=== PATIENT | female | born 1990 | race Hispanic/Latino ===

== ENCOUNTER 2020-01-12 09:53 | Inpatient (IN) | payer BC ==
[~2020-01-12] VITALS: Ht 170.2 cm; Wt 85.7 kg
--- OUTSIDE RECORDS SUMMARY | ~2020-01-12 | XMS | Clinical Summary ---
Demographics + + + | Address | [address] | | | [place] [address] | + + + | Home Phone | | + + + | Preferred Language | Unknown | + + + | Marital Status | Single | + + + | Pentecostalism Affiliation | 1041 | + + + | Race | Unknown | + + + | Ethnic Group | Unknown | + + + Author + + + | Author | [facility] | | | and [place] | + + + | Organization | [facility] | | | and [place] | + + + | Address | Unknown | + + + | Phone | Unavailable | + + + Support + + +---------+ + | Name | Relationship | Address | Phone | + + +---------+ + | Libradoparish Stinson | ECON | Unknown | | + + +---------+ + Care Team Providers + +------+ + | Care Television And Radio Repairer Name | Role | Phone | + +------+ + PCP | Unavailable | + +------+ + Allergies No Known Allergies Medications Not on file Active Problems + + + | Problem | Noted Date | + + + | Epigastric pain | 01/18/2018 | + + + + + | Overview: Added automatically from request for surgery [id number] | + + + + + | Gastroesophageal reflux disease | 01/18/2018 | + + + + + | Overview: Added automatically from request for surgery [id number] | + + Family History + + +------+ + | Medical History | Relation | Name | Comments | + + +------+ + | Colon cancer | Neg Hx | | | + + +------+ + | Colon polyps | Neg Hx | | | + + +------+ + + +------+--------+ + | Relation | Name | Status | Comments | + +------+--------+ + | Father | | Alive | | + +------+--------+ + | Mother | | Alive | | + +------+--------+ + Social History + +-------+ +--------+------+ | Tobacco Use | Types | Packs/Day | Years | Date | | | | | Used | | + +-------+ +--------+------+ | Never Smoker | | | | | + +-------+ +--------+------+ + + + | Sex Assigned at | Date Recorded | | | | + + + | Not on file | | + + + Last Filed Vital Signs + + + + + | Vital Sign | Reading | Time Taken | Comments | + + + + + | Blood Pressure | 110/63 | 03/14/2018 12:10 PM | | | | | PDT | | + + + + + | Pulse | 65 | 03/14/2018 12:10 PM | | | | | PDT | | + + + + + | Temperature | 36.1 C (97 F) | 03/14/2018 12:10 PM | | | | | PDT | | + + + + + | Respiratory Rate | 16 | 03/14/2018 12:10 PM | | | | | PDT | | + + + + + | Oxygen Saturation | - | - | | + + + + + | Inhaled Oxygen | - | - | | | Concentration | | | | + + + + + | Weight | 66 kg (145 lb 8 oz) | 03/14/2018 12:10 PM | | | | | PDT | | + + + + + | Height | 167.6 cm (5' 6") | 03/14/2018 12:10 PM | | | | | PDT | | + + + + + | Body Mass Index | 23.48 | 03/14/2018 12:10 PM | | | | | PDT | | + + + + + Plan of Treatment + + +-------+ + | Health Maintenance | Due Date | Last | Comments | | | | Done | | + + +-------+ + | Hepatitis C | | | | | Screening | 2 | | | + + +-------+ + | Vaccine: | | | | | Dtap/Tdap/Td (1 - | 1 | | | | Tdap) | | | | + + +-------+ + | Cervical Cancer | | | | | Screening (Pap) | 3 | | | + + +-------+ + | Vaccine: Influenza | | | | | (#1) | 0 | | | + + +-------+ + Results Not on filefrom Last 3 Months
--- OUTSIDE RECORDS SUMMARY | ~2020-01-12 | XMS | Encounter Summary ---
Demographics + + + | Address | [address] | | | [place] [address] | + + + | Home Phone | | + + + | Preferred Language | Unknown | + + + | Marital Status | Single | + + + | Spiritism Affiliation | 1041 | + + + | Race | Unknown | + + + | Ethnic Group | Unknown | + + + Author + + + | Author | [facility] | | | and [place] | + + + | Organization | [facility] | | [...] Team Providers + +------+ + | Care Tire Builder Heavy Service Name | Role | Phone | + +------+ + PCP | Unavailable | + +------+ + Encounter Details +--------+ + + + + | Date | Type | Department | Care Team | Description | +--------+ + + + + | 03/14/ | [facility] | [facility] | Mario Loomis | Epigastric pain; | | 2018 | Encounter | [facility] | MD Wu [address] | Gastroesophageal | | | | INTRA [address] | [place] | reflux disease, | | | | [place], [place] | [address] | esophagitis presence | | | | [address] | | not specified | | | | [phone] | | | +--------+ + + + + Social History + +-------+ +--------+------+ | Tobacco Use | Types | Packs/Day | Years | Date | | | | | Used | | + +-------+ +--------+------+ | Never Assessed | | | | | + +-------+ +--------+------+ + + + | Sex Assigned at | Date Recorded | | | | + + + | Not on file | | + + + documented as of this encounter Last Filed Vital Signs + + + [...] | | + + + + + documented in this encounter Medications at Time of Discharge + + + +---------+ + + | Medication | Sig | Dispensed | Refills | Start | End Date | | | | | | Date | | + + + +---------+ + + | sucralfate | Take 1 tablet by | 40 | 0 | 12/01/19 | | | (CARAFATE) 1 g | mouth 4 (four) times | tablet | | 18 | 9 | | tablet | daily. | | | | | + + + +---------+ + + documented as of this encounter H&P Mario Aguilar MD - 03/13/2018 11:33 PM PDT H&P by Mario Loomsi IV, MD at 03/13/18 5655 Author: Mario Loomis IV, MD Service: Gastroenterology Author Type: Physician Filed: 03/14/18 1127 Date of Service: 03/13/18 0544 Status: Signed Diesel Service Journeyman: Mario Loomis IV, MD (Physician) [facility] Service: Gastroenterology Pre-Operative History & Physical ? INDICATION: ICD-10-CM 1. Gastroesophageal reflux disease, esophagitis presence not specified K21.9 2. Epigastric pain R10.13 3. Constipation, unspecified constipation type K59.00 PROCEDURE: EGD ? History Obtained From: Patient visit with Taryn Lemus PA-C HISTORY OF PRESENT ILLNESS The patient is a 28 y.o., female, : 1990, who presents with GERD, Epigastric pain a nd Constipation ROS/Clinical Review Constitutional: Positive for activity change, appetite change, fatigue and unexpected weigh t change. Negative for chills, diaphoresis and fever. HENT: Positive for mouth sores and trouble swallowing (c/o x2 months while eating couple ti mes a week.). Negative for ear pain, nosebleeds, sore throat and voice change. Eyes: Positive for pain and redness. Negative for visual disturbance. Respiratory: Negative for cough, choking, chest tightness, shortness of breath and wheezing . Cardiovascular: Negative for chest pain, palpitations and leg swelling. Gastrointestinal: Positive for constipation (c/o x5 months BM's 1-2 times a day. Has been e ating more foods with fiber which help with digestion.) and nausea (c/o x1 month while eatin g.). Negative for abdominal distention, abdominal pain, anal bleeding, blood in stool, diarr hea, rectal pain and vomiting. C/o of heartburn while eating spicy foods, constant discomfort daily. Endocrine: Positive for cold intolerance. Negative for heat intolerance and polydipsia. Genitourinary: Negative for difficulty urinating, dysuria, frequency, hematuria, urgency an d vaginal bleeding. Musculoskeletal: Positive for back pain. Negative for arthralgias, gait problem, joint swel ling, myalgias, neck pain and neck stiffness. Skin: Positive for color change. Negative for rash and wound. Allergic/Immunologic: Negative for environmental allergies, food allergies and immunocompro mised state. Neurological: Negative for dizziness, tremors, seizures, syncope, weakness, light-headednes s and headaches. Hematological: Negative for adenopathy. Does not bruise/bleed easily. Psychiatric/Behavioral: Negative for agitation, behavioral problems, confusion, dysphoric m ood, hallucinations and suicidal ideas. The patient is not nervous/anxious. Allergies: No Known Allergies Medications: Current Outpatient Prescriptions on File Prior to Visit Medication Sig Dispense Refill pantoprazole (PROTONIX) 20 MG tablet Take 2 tablets by mouth every morning before break fast. 60 tablet 11 sucralfate (CARAFATE) 1 g tablet Take 1 tablet by mouth 4 (four) times daily. (Patient taking differently: Take 1 g by mouth as needed.) 40 tablet 0 No current facility-administered medications on file prior to visit. Past Medical History Diagnosis Date Gastroesophageal reflux disease 01/18/2018 No past surgical history on file. Family History Problem Relation Age of Onset Colon polyps Neg Hx Colon cancer Neg Hx Social History: History Smoking Status Never Smoker Smokeless Tobacco Never Used History Alcohol Use No History Drug Use No PHYSICAL EXAM Vital Signs: BP 114/73 (BP Location: Right upper arm, Patient Position: Sitting) | Pulse 71 | Temp 96.6 F (35.9 C) (Temporal) | Resp 16 | Ht 1.676 m (5' 6") | Wt 66 kg (145 lb 8.1 oz) | LMP 03/07/2018 (Approximate) | SpO2 100% | BMI 23.48 kg/m ? Pertinent Physical Exam: HENT: wnl Neck: wnl Lungs: wnl Heart: wnl Abd: wnl ? PROBLEM LIST Patient Active Problem List Diagnosis Epigastric pain Gastroesophageal reflux disease ASSESSMENT & PLAN 1. Patient is a 28 y.o., female, with above specified procedure planned for the indications noted. 2. Medical conditions are currently stable and patient is felt appropriate for proceeding w ith procedure. Treatment Plan: _x___EGD ____COLONOSCOPY ____ERCP ____OTHER Plan for Anesthesia: _x___IV Sedation ____Per Anesthesia Service ____None Procedure Consent: The procedure, indications, limitations, alternatives available and pote ntial complications to include but not limited to bleeding, perforation, infection, and adve rse medication reaction was explained. Opportunity for questions provided and informed conse nt obtained. Moderate Sedation Presedation Assessment completed. ASA Classification: ASA 1: Normal healthy patient Mallampati Classification: I: Full visibility of tonsils, uvula and soft palate On reexamination of the patient and patient's chart today, there are no changes. Discharge Plans: Discharge when appropriate discharge criteria met. Also per any procedure report recommendations. ? Updated today Ariana Loomis IV, M.D. 03/14/2018 Primary Care Physician: Per PT None *CORE MEASURES REMINDER: If the patient has a known or suspected infection prior to surgery , please add diagnosis to the problem list (consider: Infection 136.9). ? documented in th is encounter Procedure Notes Mario Loomis MD - 03/14/2018 11:26 AM PDT Procedures signed by at 03/14/18 1200 Author: Mario Loomis IV, MD Service: Gastroenterology Author Type: Physician Filed: 03/14/18 1200 Date of Service: 03/14/18 1126 Status: Signed Diesel Service Journeyman: Mario Loomis IV, MD (Physician) Procedure Orders: 1. EGD [[id number]] ordered by Mario Loomis IV, MD at 03/14/18 1018 documented in th is encounter Miscellaneous Notes Plan of Care - Mario Loomis MD - 03/14/2018 12:01 PM PDTFormatting of this note margo ht be different from the original. Plan of Care by Mario Loomis IV, MD at 03/14/18 1201 Author: Mario Loomis IV, MD Service: Gastroenterology Author Type: Physician Filed: 03/14/18 1201 Date of Service: 03/14/18 1201 Status: Signed Diesel Service Journeyman: Mario Loomis IV, MD (Physician) Procedure report listed under Procedures in Chart Review iscellaneous - Mario Loomis MD - 03/14/2018 11:26 AM PDT D-C Instructions Provation signed by at 03/14/18 1200 Author: Mario Loomis IV, MD Service: Gastroenterology Author Type: Physician Filed: 03/14/18 1200 Date of Service: 03/14/18 1126 Status: Signed Diesel Service Journeyman: Mario Loomis IV, MD (Physician) Patient Instructions After Upper GI endoscopy Patient: Smitha Correa Procedure Date: Wednesday, March 14, 2018 Attending MD: Mario Loomis IV; You had a Upper GI endoscopy today. Your doctor made the following findings: - Normal esophagus. - Normal stomach. Biopsied. - Normal duodenal bulb, first portion of the duodenum and second portion of the duodenum. Your doctor recommends: You have a contact number available for emergencies. The signs and symptoms of potential delayed complications were discussed with you. You may return to normal activities tomorrow. Written discharge instructions were provided to you. Resume your previous diet. Continue your present medications. We are waiting for your pathology results. Return to your GI clinic as previously scheduled. CALL YOUR PHYSICIAN IF YOU EXPERIENCE: < Any unusual abdominal pain. < Any shoulder pain. < Temperature above 100 degrees Fahrenheit < Rectal bleeding in excess of 2 Tablespoons DIET: If you have undergone diagnostic colonosocpy, you may resume your regular diet immediately after the procedure unless otherwise instructed by your doctor. CAUTIONS: The medications used to make the examination more comfortable for you will be acting in your body for up to 24 hours. Therefore: < DO NOT drive a car or operate machinery or power tools. < DO NOT drink alcohol or take tranquillizers or sleeping pills. < DO NOT make major personal decisions. This includes signing legal documents and/or contracts. MEDICATIONS: Most medications can be safely resumed once you can eat. The exceptions would be tranquillizers and sleeping pills. Mario Loomis IV, 03/14/2018 12:00:19 PM This report has been signed electronically. documented in th is encounter Plan of Treatment Not on filedocumented as of this encounter Procedures + +--------+ + + + | Procedure Name | Priori | Date/Time | Associated Diagnosis | Comments | | | ty | | | | + +--------+ + + + | TISSUE REQUEST FOR | Routin | 03/14/2018 | | Results for this | | PATHOLOGY (NON-ORD) | e | 1:00 PM | | procedure are in the | | | | PDT | | results section. | + +--------+ + + + | ENDOSCOPY | Routin | 03/14/2018 | | Results for this | | | e | 11:26 AM | | procedure are in the | | | | PDT | | results section. | + +--------+ + + + | HCG, URINE, QUAL | Routin | 03/14/2018 | | Results for this | | | e | 10:19 AM | | procedure are in the | | | | PDT | | results section. | + +--------+ + + + documented in this encounter Results Tissue Request For Pathology (03/14/2018 1:00 PM PDT) + + | Specimen | + + | Soft tissue sample | | (specimen) | + + + + + | Narrative | Performed At | + + + | SPECIMEN(S): A GASTRIC BX SPECIMEN SOURCE: A. GASTRIC BX CLINICAL | EXTERNAL LAB | | HISTORY: Epigastric pain MICROSCOPIC DESCRIPTION: Histologic | | | sections of all submitted blocks are examined by light microscopy. | | | These findings, together with the gross examination, support the | | | pathologic diagnosis. FINAL PATHOLOGIC DIAGNOSIS: Gastric biopsy: | | | - Chronic gastritis with mild activity and foci of reactive | | | changes. - POSITIVE for abundant Helicobacter-type organisms. | | | CLR:emb:C2NR GROSS DESCRIPTION: The specimen is received in | | | formalin labeled Katina MelanieSmitha Landeros and designated "gastric | | | bx" and consists of 4, 0.3 to 0.4 cm lucas-pink fragments. Entirely | | | submitted in A1. am:AMB:milind PERFORMING LABORATORY: The technical | | | component was performed by [facility] in [place], [address] [place] [address], | | | [facility] [address] (Sustain Engineer: Scarlet Caal MD; CLIA# | | | [id number]). Professional interpretation was performed by [facility] | | | [facility], [facility], [address] [place] [address], | | | [place] [phone] (Sustain Engineer: Vicente Pandey M.D.; CLIA#: | | | [id number]). Diagnostician: Brown Sanchez MD Pathologist | | | Electronically Signed 03/15/2018 | | + + + + +---------+ + + | Performing | Address | City/State/Zipcode | Phone Number | | Organization | | | | + +---------+ + + | EXTERNAL LAB | | | | + +---------+ + + Endoscopy Procedures (03/14/2018 11:26 AM PDT) + + | Specimen | + + | | + + + + + | Narrative | Performed At | + + + | Historically converted procedure from [facility] Epic environment | EXTERNAL LAB | | [facility] | | | | | | Patient Name: Katina Smitha Correa Procedure | | | Date: 03/14/2018 11:26 AM | | | Date of : 1990 | | | Note Status: Finalized Attending MD: Mario Loomis IV , | | | Instrument Name: [id number] Gastroscope | | | | | | Procedure Type: Upper GI endoscopy | | | Indications: Epigastric abdominal pain, | | | Nausea Medicines: Fentanyl 100 | | | micrograms IV, Midazolam 7 mg IV Complications: | | | No immediate complications. | | | | | | Procedure: Pre-Anesthesia Assessment: - | | | Prior to the procedure, a History and Physical was performed, and | | | patient medications and allergies were reviewed. The patient's | | | tolerance of previous anesthesia was also reviewed. The risks | | | and benefits of the procedure and the sedation options and | | | risks were discussed with the patient. All questions were | | | answered, and informed consent was obtained. Prior | | | Anticoagulants: The patient has taken no previous anticoagulant or | | | antiplatelet agents. ASA Grade Assessment: I - A normal, healthy | | | patient. After reviewing the risks and benefits, the patient | | | was deemed in satisfactory condition to undergo the | | | procedure. After obtaining informed consent, the endoscope was | | | passed under direct vision. Throughout the procedure, the | | | patient's blood pressure, pulse, and oxygen saturations were | | | monitored continuously. The Endoscope was introduced through | | | the mouth, and advanced to the second part of duodenum. The | | | upper GI endoscopy was accomplished with ease. The patient | | | tolerated the procedure well. | | | | | | Estimated Blood Loss: Estimated blood loss was | | | minimal. Moderate Sedation: Medication start time: 1131 | | | Sedation and yufg-qo-vngy monitoring end time: 1152 | | | Total Moderate Sedation management time minutes: 21 MCS Codes: | | | 400[address] Total Procedure Duration Time 0 hours 5 minutes 24 seconds | | | Findings: The examined esophagus was normal. The | | | entire examined stomach was normal. Biopsies were taken with a cold | | | forceps for histology. The duodenal bulb, first portion | | | of the duodenum and second portion of the duodenum were | | | normal. | | | Impression: | | | - Normal esophagus. - Normal stomach. Biopsied. | | | - Normal duodenal bulb, first portion of the duodenum and second | | | portion of the duodenum. | | | | | | Recommendation: - Patient has a contact | | | number available for emergencies. The signs and symptoms of | | | potential delayed complications were discussed with the | | | patient. Return to normal activities tomorrow. Written discharge | | | instructions were provided to the patient. - Resume | | | previous diet. - Continue present medications. - Await | | | pathology results. - Return to GI clinic as previously | | | scheduled. - Consider abdominal ultrasound, potentially CT | | | scan | | | | | | Mario Loomis IV, 03/14/2018 12:00:19 PM This | | | report has been signed electronically. Note Initiated On: | | | 03/14/2018 11:26 AM Number of Addenda: 0 [facility] | | | [facility] | | + + + + +---------+ + + | Performing | Address | City/State/Zipcode | Phone Number | | Organization | | | | + +---------+ + + | EXTERNAL LAB | | | | + +---------+ + + , Urine, Qual (03/14/2018 10:19 AM PDT) + + + + + + | Component | Value | Ref Range | Performed | Pathologist | | | | | At | Signature | + + + + + + | Preg Test, | NEGATIVEComment: Testing | | EXTERNAL | | | Ur | performed at [facility];[address] | | LAB | | | | [address];[place], [place] | | | | | | [address] | | | | + + + + + + + + | Specimen | + + | Urine specimen | | (specimen) | + + + +---------+ + + | Performing | Address | City/State/Zipcode | Phone Number | | Organization | | | | + +---------+ + + | EXTERNAL LAB | | | | + +---------+ + + documented in this encounter Visit Diagnoses + + | Diagnosis | + + | Epigastric pain Abdominal pain, epigastric | + + | Gastroesophageal reflux disease, esophagitis presence not specified | + + documented in this encounter
--- OUTSIDE RECORDS SUMMARY | ~2020-01-12 | XMS | Encounter Summary ---
Demographics + + + | Address | [address] | | | [place] [address] | + + + | Home Phone | | + + + | Preferred Language | Unknown | + + + | Marital Status | Single | + + + | Uatsdin Affiliation | 1041 | + + + | Race | Unknown | + + + | Ethnic Group | Unknown | + + + Author + + + | Author | [facility] | | | and [place] | + + + | Organization | [facility] | | | and [...] Team Providers + +------+ + | Care Research Development Director Name | Role | Phone | + +------+ + PCP | Unavailable | + +------+ + Encounter Details +--------+ + + + + | Date | Type | Department | Care Team | Description | +--------+ + + + + | 11/30/ | Orders Only | [facility] | Hiren Schuler, | | | 2017 | | CONVERSION DEP [address] | MD [address] | | | | | [address] | [place] [address] | | | | | [place], [place] | [phone] | | | | | [address] | | | | | | [phone] | | | +--------+ + + + [...] + + documented as of this encounter Plan of Treatment Not on filedocumented as of this encounter Visit Diagnoses Not on filedocumented in this encounter"
--- OUTSIDE RECORDS SUMMARY | ~2020-01-12 | XMS | Encounter Summary ---
Demographics + + + | Address | [address] | | | [place] [address] | + + + | Home Phone | | + + + | Preferred Language | Unknown | + + + | Marital Status | Single | + + + | Amish Affiliation | [id number] | + + + | Race | Unknown | + + + | Ethnic Group | Unknown | + + + Author + + + | Author | [facility] | | | and [place] | + + + | Organization | [facility] | | | and [place] | + + + | Address | Unknown | + + + | Phone | Unavailable | + + + Support + + +---------+ + | Name | Relationship | Address | Phone | + + +---------+ + | Librado Stinson | ECON | Unknown | | + + +---------+ + Care Team Providers + +------+ + | Care Director Clinical Data Name | Role | Phone | + +------+ + PCP | Unavailable | + +------+ + Encounter Details +--------+ + + + + | Date | Type | Department | Care Team | Description | +--------+ + + + + | 11/30/ | Emergency | [facility] | Hiren Schuler, | Epigastric abdominal | | 2018 | | [facility] | MD Roger FAIRCHILD | pain | | | | EMERGENCY CENTER | [place] [address] | | | | | [address] | [phone] | | | | | [place], [place] | | | | | | [address] | | | | | | [phone] | | | +--------+ + + + [...] + + + | Blood Pressure | 120/63 | 11/30/2017 12:07 PM | | | | | PDT | | + + + + + | Pulse | 56 | 11/30/2017 12:07 PM | | | | | PDT | | + + + + + | Temperature | 36.6 C (97.8 F) | 11/30/2017 12:07 PM | | | | | PDT | | + + + + + | Respiratory Rate | 18 | 11/30/2017 12:07 PM | | | | | PDT | | + + + + + | Oxygen Saturation | - | - | | + + + + + | Inhaled Oxygen | - | - | | | Concentration | | | | + + + + + | Weight | 63 kg (138 lb 14.2 | 11/30/2017 12:07 PM | | | | oz) | PDT | | + + + + + | Height | - | - | | + + + + + | Body Mass Index | - | - | | + [...] + + documented as of this encounter ED Notes Conversion Transaction, Provider Unknown - 11/30/2017 10:17 AM PDTFormatting of this note m ight be different from the original. ED Notes by Nikki Trujillo RN at 11/30/171016 Author: Nikki Trujillo RN Service: (none) Author Type: Registered Nurse Filed: 11/30/171016 Date of Service: 11/30/171016 Status: Signed Melter Helper: Nikki Trujillo RN (Registered Nurse) IVF complete. Pt ambulatory to restroom with steady gait. Nikki Trujillo RN 11/30/17 1017 onver evonne Transaction, Provider Unknown - 11/30/2017 9:54 AM PDT ED Notes by Digna Pulliam RN at 11/30/17 0954 Author: Digna Pulliam RN Service: (none) Author Type: Registered Nurse Filed: 11/30/171102 Date of Service: 11/30/17953 Status: Addendum Melter Helper: Digna Pulliam RN (Registered Nurse) Related Notes: Original Note by Digna Pulliam RN (Registered Nurse) filed at 11/30/17 110 2 Digna Pulliam RN 11/30/171102 onver evonne Transaction, Provider Unknown - 11/30/2017 9:21 AM PDT ED Notes by Nikki Trujillo RN at 11/30/17920 Author: Nikki Trujillo RN Service: (none) Author Type: Registered Nurse Filed: 11/30/17921 Date of Service: 11/30/17920 Status: Signed Melter Helper: Nikki Trujillo RN (Registered Nurse) Pt updated on plan of care, changed into gown, and provided with warm blankets. Pt educate d on clean catch urine sample, pt ambulatory to restroom with steady gait. Nikki Trujillo RN 11/30/17921 Hiren Flores MD - 11/30/2017 9:06 AM PDT ED Provider Notes by Hiren Schuler MD at 11/30/17905 Author: Hiren Schuler MD Service: Emergency Department Author Type: Physician Filed: 11/30/17 8850 Date of Service: 11/30/17905 Status: Signed Melter Helper: Hiren Schuler MD (Physician) [facility] Department of Emergency Medicine 9:08 AM History of Present Illness Patient Identification Smitha Ambriz is a 27 y.o. female. Patient information was obtained from patient and spouse/partner. History/Exam limitations: none. Patient presented to the Emergency Department by: Car Chief Complaint Chief Complaint Patient presents with Abdominal Pain "I've been having this same problem over a year, but nobody has been able to help me" Headache Nausea Chief complaint: Abdominal pain Location: Mid epigastric Quality: Very uncomfortable Severity: Mild Onset: 1 year ago, but she is here for worsening onset yesterday Timing: Worsening Modifying factors: Improves with omeprazole and Zofran OTD Care prior to arrival: Omeprazole and Zofran Associated symptoms: Nausea, headache, constipation (straining with bowel movements) bloate d (full sensation), and loss of appetite Denies: Chest pain, urinary problems, vaginal bleeding or discharge, diarrhea or any other symptoms at this time. Context: Pt presents with mid-epigastric abdominal pain, onset 1 year ago, however onset of worsening was yesterday. Pt states that she has a stomach ulcer, which she takes omeprazole and Zofran. She also reports that she has had negative imaging of her gallbladder from [facility] recently and she denies a family hx of gallbladder problems. Associated symp toms include nausea and headache. Pt also reports she does not take NSAID'S, but she occasio preet drinks (recently drank a coupe of nights ago). PCP: Per Pt None Review of Systems Constitutional: Positive for loss of appetite Negative for fever or recent illness Eyes: Negative for vision changes Nose: Negative for congestion Throat: Negative for sore throat CV: Negative for chest pain Resp: Negative for tzevvfcgs-dh-eeoaza or cough GI: Positive for mid epigastric abdominal pain, nausea, hx constipation (strains with BM ) Negative for vomiting or diarrhea : Negative for urinary problems, dysuria, frequency, or hematuria Negative for vaginal discharge or bleeding Musculoskeletal: Negative for back pain Skin: Negative for rash Neuro/Psych: Positive for headache Negative for weakness or numbness All other systems reviewed and negative except as noted. History reviewed. No pertinent past medical history. History reviewed. No pertinent surgical history. Prior to Admission medications Not on File No Known Allergies Social History Social History Marital status: Single Spouse name: N/A Number of children: N/A Years of education: N/A Occupational History Not on file. Social History Main Topics Smoking status: Never Smoker Smokeless tobacco: Never Used Alcohol use No Drug use: No Sexual activity: Not on file Other Topics Concern Not on file Social History Narrative No narrative on file History reviewed. No pertinent family history. Physical Exam BP 140/74 | Pulse 62 | Temp 97.8 F (36.6 C) (Temporal) | Resp 18 | Wt 63 kg (138 lb 14.2 oz) | SpO2 100% Vital signs interpretation: Mildly hypertensive, otherwise WNL Pulse Oximetry interpretation: Normal General: Alert, in no apparent distress Eyes: Normal inspection, non-icteric, non-injected ENT: Nose normal Pharynx normal Moist mucous membranes Neck: Normal inspection Back: Normal inspection CV: Rate and rhythm normal No murmurs Respiratory: Bilaterally clear to auscultation No rales, wheezing or rhonchi Abdomen: Soft, non-distended, epigastric tenderness No masses, rebound or guarding Negative Beasley's sign Normal active bowel sounds Extremities: Non tender, painless ROM Skin: Color normal Warm and dry No rash Neuro: Alert, no AMS No gross motor/sensory deficits Medical Decision Making and Emergency Department Course ED Department Course Patient presents to ED with complaints of recurrent epigastric abdominal pain. My DDx incl udes, but is not limited to: PUD, gastris, GERD, esophagitis, verses other. Although conside red, I have a low index suspicion for gall bladder disease. I will request records from [facility]. Will order labs and give GI cocktail, Zofran, and fluids. 9:40 AM Reviewed [facility] report from [facility], impression report states echo genic liver consistent with fatty infiltration, and the gallbladder was unremarkable. The pa ever had this done through [facility] however pt's work up was done out patient, there ar e no ED records for review. 10:10 AM Labs reviewed. All labs resulted unremarkable. 11:08 AM Rechecked patient who reports improvement, discussed her findings. Also discussed a more proper diet as well as avoiding NSAID and alcohol. Will refer patient to a GI, and I advised her to talk to her PCP about finding a GI doctor in [place] where she lives, but I wi ll refer her to a local GI provider. She may need a scope. I discussed my clinical impressio n with the patient. We discussed the emergent signs and symptoms that would necessitate a re turn to ED. All questions and concerns addressed. Patient is ready for discharge. Will dis charge home with Rx for Carafate and I advised her to continue her current medications. Vitals: 11/30/17 0840 11/30/17 0958 11/30/17 1207 BP: 140/74 118/72 120/63 BP Location: Left upper arm Left upper arm Pulse: 62 70 56 Resp: Temp: 97.8 F (36.6 C) TempSrc: Temporal SpO2: 100% 100% 100% Weight: 63 kg (138 lb 14.2 oz) Records Reviewed Nursing notes. No previous [facility] [place] available in [facility] for review. Laboratory Evaluation Results Procedure Component Value Ref Range Date/Time Comprehensive metabolic panel [[id number]] Collected: 11/30/17927 Order Status: Completed Specimen: Blood Updated: 11/30/17 1006 SODIUM 138 135 - 145 mmol/L POTASSIUM 3.9 3.5 - 4.9 mmol/L CHLORIDE 106 99 - 109 mmol/L CO2 27 23 - 32 mmol/L ANION GAP AGAP 9 5 - 20 mmol/L GLUCOSE 95 65 - 99 mg/dL BUN 11 8 - 25 mg/dL CREATININE 0.66 0.50 - 1.00 mg/dL BUN/CREAT 17 CALCIUM 9.0 8.5 - 10.5 mg/dL TOTAL PROTEIN 7.8 6.3 - 8.2 g/dL Albumin 4.0 3.6 - 5.0 g/dL GLOBULIN 3.8 1.3 - 4.9 g/dL A/G 1.1 1.0 - 2.4 TBIL 0.8 0.1 - 1.5 mg/dL ALK PHOS 77 35 - 115 U/L AST 15 10 - 45 U/L ALT 16 10 - 65 U/L EGFR >60 >60 mL/min/1.73m2 Lipase [[id number]] Collected: 11/30/17927 Order Status: Completed Specimen: Blood Updated: 11/30/17 1006 LIPASE 80 73 - 393 U/L Urine Test (LAB) [[id number]] Collected: 11/30/17921 Order Status: Completed Specimen: Urine from Urine, Clean Catch Updated: 06/19/18 095 7 Preg Test, Ur NEGATIVE NEGATIVE Urinalysis (reflex to microscopic/reflex to culture) [[id number]] Collected: 11/30/1703 11 Order Status: Completed Specimen: Urine, Clean Catch Updated: 11/30/17951 COLOR UA YELLOW CLARITY CLEAR Specific [place], UA 1.015 1.002 - 1.030 LEUKOCYTE ESTERASE NEGATIVE NEGATIVE NITRITE NEGATIVE NEGATIVE UROBILINOGEN NORMAL <1.1 mg/dL PROTEIN NEGATIVE NEGATIVE mg/dL PH,URINE 6.0 5.0 - 8.0 BLOOD NEGATIVE NEGATIVE KETONES NEGATIVE NEGATIVE mg/dL BILIRUBIN NEGATIVE NEGATIVE GLUCOSE NEGATIVE NEGATIVE mg/dL CBC W/Auto Diff (Reflex to Manual) [[id number]] Collected: 11/30/17927 Order Status: Completed Specimen: Blood Updated: 11/30/17942 WBC 8.91 3.80 - 11.00 K/uL RBC 4.61 3.70 - 5.10 M/uL HGB 14.1 11.3 - 15.5 g/dL HCT 40.7 34.0 - 46.0 % MCV 88.3 80.0 - 100.0 fl MCH 30.7 27.0 - 34.0 pg MCHC 34.7 32.0 - 35.5 g/dL RDW SD 38.1 37 - 53 fl PLT 362 150 - 400 K/uL MPV 8.0 fl DIFF TYPE AUTOMATED NEUTROPHILS 68.42 % LYMPHOCYTES 23.05 % MONOCYTES 5.67 % EOSINOPHILS 2.17 % BASOPHILS 0.69 % NEUTROPHILS ABS 6.09 1.90 - 7.40 K/uL LYMPHOCYTES ABS 2.05 1.00 - 3.90 K/uL MONOCYTES ABS 0.51 0.00 - 0.80 K/uL EOSINOPHILS ABS 0.19 0.00 - 0.50 K/uL BASOPHILS ABS 0.06 0.00 - 0.10 K/uL I personally reviewed the lab results and they have been posted to the chart. Pertinent po sitive and negative findings have been addressed appropriately. ED Diagnosis Final diagnosis Epigastric abdominal pain Disposition: ED Disposition ED Disposition Condition Comment Orders Discharge Stable Follow-up Information Follow up With Specialties Details Why Contact Info Mario Loomis IV, MD Gastroenterology Schedule an appointment as soon as possible for a nay [address] [phone] Your doctor in [place] Schedule an appointment as soon as possible for a visit [facility] Emergency Department Emergency Medicine If symptoms worsen [address] [facility] [address] Discharge Medications: Discharge Medication List as of 11/30/2017 12:09 PM START taking these medications Details sucralfate (CARAFATE) 1 g tablet Take 1 tablet by mouth 4 (four) times daily., Starting Wed11/30/2017, Until Wed11/30/2018, Print Hiren Schuler MD Procedures Additional Documentation Procedures Attending Provider Note: Hiren Sandhu MD personally performed the services described in this documentation, as scribed by Johnna Silva in my presence, and it is both accura te and complete. Chart Reviewed and Completed: 11/30/2017 10:41 PM Scribe: Raven Verma, scribing for and in the presence of Hiren Schuler MD. Signed by: Raven Diego 11/30/2017 11:41 AM Hiren Schuler MD 11/30/17 2326 documented in this encounter Plan of Treatment Not on filedocumented as of this encounter Procedures + +--------+ + + + | Procedure Name | Priori | Date/Time | Associated Diagnosis | Comments | | | ty | | | | + +--------+ + + + | EXTERNAL LAB: CBC | Routin | 11/30/2017 | | Results for this | | | e | 9:28 AM | | procedure are in the | | | | PDT | | results section. | + +--------+ + + + | URINALYSIS, REFLEX | Routin | 11/30/2017 | | Results for this | | MICROSCOPIC AND/OR | e | 9:28 AM | | procedure are in the | | CULTURE | | PDT | | results section. | + +--------+ + + + | LIPASE | Routin | 11/30/2017 | | Results for this | | | e | 9:28 AM | | procedure are in the | | | | PDT | | results section. | + +--------+ + + + | COMPREHENSIVE | Routin | 11/30/2017 | | Results for this | | METABOLIC PANEL | e | 9:28 AM | | procedure are in the | | | | PDT | | results section. | + +--------+ + + + | HCG, URINE, QUAL | Routin | 11/30/2017 | | Results for this | | | e | 9:22 AM | | procedure are in the | | | | PDT | | results section. | + +--------+ + + + documented in this encounter Results Urinalysis, Reflex Microscopic and/or Culture (11/30/2017 9:28 AM PDT) + + + + + + | Component | Value | Ref Range | Performed | Pathologist | | | | | At | Signature | + + + + + + | Color | YELLOW | | EXTERNAL | | | | | | LAB | | + + + + + + | Clarity, | CLEAR | | EXTERNAL | | | Urine | | | LAB | | + + + + + + | Specific | 1.015 | 1.002 - 1.030 | EXTERNAL | | | [place], | | | LAB | | | Urine | | | | | + + + + + + | Leukocyte | NEGATIVE | | EXTERNAL | | | Esterase, | | | LAB | | | Urine | | | | | + + + + + + | Nitrite, | NEGATIVE | | EXTERNAL | | | Urine | | | LAB | | + + + + + + | Urobilinoge | NORMAL | mg/dL | EXTERNAL | | | n, Urine | | | LAB | | + + + + + + | Protein, | NEGATIVE | mg/dL | EXTERNAL | | | Urine | | | LAB | | + + + + + + | pH, Urine | 6.0 | 5.0 - 8.0 | EXTERNAL | | | | | | LAB | | + + + + + + | Blood, | NEGATIVE | | EXTERNAL | | | Urine | | | LAB | | + + + + + + | Ketones | NEGATIVE | mg/dL | EXTERNAL | | | | | | LAB | | + + + + + + | Bilirubin, | NEGATIVE | | EXTERNAL | | | Urine | | | LAB | | + + + + + + | Glucose, | NEGATIVEComment: Testing | mg/dL | EXTERNAL | | | Urine | performed at [facility] [place] | | LAB | | | | [address];[place], [place] | | | | | | [address] | | | | + + + + + + + + | Specimen | + + | | + + + +---------+ + + | Performing | Address | City/State/Zipcode | Phone Number | | Organization | | | | + +---------+ + + | EXTERNAL LAB | | | | + +---------+ + + External Lab: JEAN (11/30/2017 9:28 AM PDT) + + + + + + | Component | Value | Ref Range | Performed | Pathologist | | | | | At | Signature | + + + + + + | WBC | 8.91 | 3.80 - 11.00 | EXTERNAL | | | | | K/uL | LAB | | + + + + + + | Non- | 4.61 | 3.70 - 5.10 | EXTERNAL | | | Red Blood | | M/uL | LAB | | | Cells | | | | | | Counted | | | | | + + + + + + | Hemoglobin | 14.1 | 11.3 - 15.5 | EXTERNAL | | | | | g/dL | LAB | | + + + + + + | Hematocrit, | 40.7 | 34.0 - 46.0 % | EXTERNAL | | | POC | | | LAB | | + + + + + + | MCV | 88.3 | 80.0 - 100.0 fl | EXTERNAL | | | | | | LAB | | + + + + + + | MCH | 30.7 | 27.0 - 34.0 pg | EXTERNAL | | | | | | LAB | | + + + + + + | MCHC | 34.7 | 32.0 - 35.5 | EXTERNAL | | | | | g/dL | LAB | | + + + + + + | RDW-CV | 38.1 | 37 - 53 fl | EXTERNAL | | | | | | LAB | | + + + + + + | Platelet | 362 | 150 - 400 K/uL | EXTERNAL | | | Count | | | LAB | | | Plasma | | | | | + + + + + + | MPV | 8.0 | fl | EXTERNAL | | | | | | LAB | | + + + + + + | Differentia | AUTOMATED | | EXTERNAL | | | l Type | | | LAB | | + + + + + + | % Segmented | 68.42 | % | EXTERNAL | | | | | | LAB | | | Neutrophils | | | | | + + + + + + | % | 23.05 | % | EXTERNAL | | | Lymphocytes | | | LAB | | + + + + + + | % Monocytes | 5.67 | % | EXTERNAL | | | | | | LAB | | + + + + + + | % | 2.17 | % | EXTERNAL | | | Eosinophils | | | LAB | | + + + + + + | % Basophils | 0.69 | % | EXTERNAL | | | | | | LAB | | + + + + + + | Absolute | 6.09 | 1.90 - 7.40 | EXTERNAL | | | Segmented | | K/uL | LAB | | | Neutrophils | | | | | + + + + + + | Absolute | 2.05 | 1.00 - 3.90 | EXTERNAL | | | Lymphocytes | | K/uL | LAB | | + + + + + + | Absolute | 0.51 | 0.00 - 0.80 | EXTERNAL | | | Monocytes | | K/uL | LAB | | + + + + + + | Absolute | 0.19 | 0.00 - 0.50 | EXTERNAL | | | Eosinophils | | K/uL | LAB | | + + + + + + | Absolute | 0.06Comment: Testing | 0.00 - 0.10 | EXTERNAL | | | Basophils | performed at [facility] [place] | K/uL | LAB | | | | [address];[place], [place] | | | | | | [address] | | | | + + + + + + + + | Specimen | + + | Blood specimen | | (specimen) | + + + +---------+ + + | Performing | Address | City/State/Zipcode | Phone Number | | Organization | | | | + +---------+ + + | EXTERNAL LAB | | | | + +---------+ + + Lipase (11/30/2017 9:28 AM PDT) + + + + + + | Component | Value | Ref Range | Performed | Pathologist | | | | | At | Signature | + + + + + + | Lipase | 80Comment: Testing | 73 - 393 U/L | EXTERNAL | | | | performed at [facility] [place] | | LAB | | | | [address];[place] | | | | | | [address] | | | | + + + + + + + + | Specimen | + + | Blood specimen | | (specimen) | + + + +---------+ + + | Performing | Address | City/State/Zipcode | Phone Number | | Organization | | | | + +---------+ + + | EXTERNAL LAB | | | | + +---------+ + + Comprehensive Metabolic Panel (11/30/2017 9:28 AM PDT) + + + + + + | Component | Value | Ref Range | Performed | Pathologist | | | | | At | Signature | + + + + + + | Na | 138 | 135 - 145 | EXTERNAL | | | | | mmol/L | LAB | | + + + + + + | K | 3.9 | 3.5 - 4.9 | EXTERNAL | | | | | mmol/L | LAB | | + + + + + + | Cl | 106 | 99 - 109 mmol/L | EXTERNAL | | | | | | LAB | | + + + + + + | CO2 | 27 | 23 - 32 mmol/L | EXTERNAL | | | | | | LAB | | + + + + + + | Anion Gap | 9 | 5 - 20 mmol/L | EXTERNAL | | | | | | LAB | | + + + + + + | Glucose, | 95 | 65 - 99 mg/dL | EXTERNAL | | | Fasting | | | LAB | | + + + + + + | BUN | 11 | 8 - 25 mg/dL | EXTERNAL | | | | | | LAB | | + + + + + + | Creatinine | 0.66 | 0.50 - 1.00 | EXTERNAL | | | | | mg/dL | LAB | | + + + + + + | BUN/Creatin | 17 | | EXTERNAL | | | ine Ratio | | | LAB | | + + + + + + | Calcium | 9.0 | 8.5 - 10.5 | EXTERNAL | | | | | mg/dL | LAB | | + + + + + + | Protein, | 7.8 | 6.3 - 8.2 g/dL | EXTERNAL | | | Total | | | LAB | | + + + + + + | Albumin | 4.0 | 3.6 - 5.0 g/dL | EXTERNAL | | | | | | LAB | | + + + + + + | Globulin | 3.8 | 1.3 - 4.9 g/dL | EXTERNAL | | | | | | LAB | | + + + + + + | A/G Ratio | 1.1 | 1.0 - 2.4 | EXTERNAL | | | | | | LAB | | + + + + + + | Bilirubin | 0.8 | 0.1 - 1.5 mg/dL | EXTERNAL | | | Total | | | LAB | | + + + + + + | ALP, | 77 | 35 - 115 U/L | EXTERNAL | | | External | | | LAB | | + + + + + + | AST | 15 | 10 - 45 U/L | EXTERNAL | | | | | | LAB | | + + + + + + | ALT | 16 | 10 - 65 U/L | EXTERNAL | | | | | | LAB | | + + + + + + | Estimated | >60Comment: GFR <60: | mL/min/1.73m2 | EXTERNAL | | | GFR | CHRONIC KIDNEY DISEASE, | | LAB | | | | IF FOUND OVER A 3 MONTH | | | | | | PERIOD.GFR <15: KIDNEY | | | | | | FAILURE.FOR | | | | | | AMERICANS, MULTIPLY THE | | | | | | CALCULATED GFR BY | | | | | | 1.210.This eGFR is | | | | | | calculated using the | | | | | | MDRD IDMS traceable | | | | | | equation. PLEASE NOTE | | | | | | NEW CALCULATION | | | | | | EFFECTIVE 11/09/2017 | | | | | | Testing performed at | | | | | | [facility] [place] [place] [address] | | | | | | [facility];[place] [address] | | | | + + + + + + + + | Specimen | + + | Blood specimen | | (specimen) | + + + +---------+ + + | Performing | Address | City/State/Zipcode | Phone Number | | Organization | | | | + +---------+ + + | EXTERNAL LAB | | | | + +---------+ + + , Urine, Qual (11/30/2017 9:22 AM PDT) + + + + + + | Component | Value | Ref Range | Performed | Pathologist | | | | | At | Signature | + + + + + + | Preg Test, | NEGATIVEComment: Testing | | EXTERNAL | | | Ur | performed at [facility] [place] | | LAB | | | | [address];[place], [place] | | | | | | [address] | | | | + + + [...] | Diagnosis | + + | Epigastric abdominal pain Abdominal pain, epigastric | + + documented in this encounter
--- NOTE | 2020-01-12 17:52 | PR ---
[facility] [address] [facility] [place], [place] [address] Signed Progress Notes IP Datetime Report Generated by AGUSTINA: 01/12/2020 17:52 PROGRESS NOTES: [id number] Impression: Reassuring Heart Rate Procedures: Ultrasound Plan: Continue Present Management; Induction Informed Consent Obtain: Induction of Labor VITAL SIGNS: [id number] Vital Signs: Reviewed VS Notable Details: No sustained severe BPs EXAM: [id number] Dilatation: 0.0 Effacement: 0 Station: -3 Contractions: Rare MEMBRANES: [id number] Comments: Pt seen and examined. No cervical change s/p 2 doses cytotec. No ONTIVEROS, RUQ pain, or visual changes. No sustained severe range BPs. Bedside US confirms cephalic position. FETUS A: [id number] FHR Baseline: 130 Variability: Moderate 6-25bpm Accelerations: 15X15 Decelerations: None FHR Category: Category I Presentation: Vertex Comments on Fetus A: No evidence of metabolic acidosis FETUS B: [id number] Signing Physician: Jackson Collado DO Copies: ~ *Electronically Signed* 01/12/20 9099 JACKSON COLLADO DO PATIENT NAME: ASCENCIO MARQUES,CARMELLA PROGRESS NOTE DATE OF : 89 PHYSICIAN: JACKSON COLLADO DO RPT #: [id number] REPORT IS CONFIDENTIAL AND NOT TO BE RELEASED WITHOUT AUTHORIZATION
--- NOTE | 2020-01-12 22:05 | PR ---
[facility] [address] [place], [place] [address] Signed Progress Notes IP Datetime Report Generated by AGUSTINA: 01/12/2020 22:05 PROGRESS NOTES: [id number] Impression: Reassuring Heart Rate Procedures: Sterile Vag Exam Plan: Continue Present Management Informed Consent Obtain: Induction of Labor VITAL SIGNS: [id number] Vital Signs: Reviewed VS Notable Details: No sustained severe BPs EXAM: [id number] Dilatation: 0.0 Effacement: 0 Station: -3 Contractions: Rare MEMBRANES: [id number] Comments: Pt seen and examined. Doing well. C/O mild cramping w/ contractions. No LOF or bleeding. +FM. Pt w/ labile BPs with activity; resolved w/ IV labetalol 40mg IV x 1. No ONTIVEROS, RUQ pain, or visual changes. Should pt experience sustained elevated BPs in severe range, will likely start Mag sulfate and continue treatment w/ antihypertensives. Pt understands and agrees. Continue cytotec induction as cervix remains closed thick and high. FETUS A: [id number] FHR Baseline: 130 Variability: Moderate 6-25bpm Accelerations: 15X15 Decelerations: None FHR Category: Category I Presentation: Vertex Comments on Fetus A: No evidence of metabolic acidosis FETUS B: [id number] Signing Physician: Jackson Collado DO Copies: ~ *Electronically Signed* 01/12/20 4673 JACKSON COLLADO DO PATIENT NAME: CARMELLA BUENROSTRO PROGRESS NOTE DATE OF : [birth year] PHYSICIAN: JACKSON COLLADO DO [facility] [[email or web address]] #: [id number] REPORT IS CONFIDENTIAL AND NOT TO BE RELEASED WITHOUT AUTHORIZATION
--- NOTE | 2020-01-13 08:52 | PR ---
[facility] [address] [place], [place] [address] Signed Progress Notes IP Datetime Report Generated by AGUSTINA: 01/13/2020 08:52 PROGRESS NOTES: [id number] Impression: Normal Progression of Labor; Reassuring Heart Rate; Gest. HTN/PreEclampsia/Eclampsia Procedures: Sterile Vag Exam Plan: Continue Present Management Other Plans: Mag Sulfate Informed Consent Obtain: Vaginal Delivery Other Informed Consents: Magnesium sulfate therapy VITAL SIGNS: [id number] Vital Signs: Reviewed VS Notable Details: No sustained severe BPs EXAM: [id number] Dilatation: 1.5 Effacement: 75 Station: -2 Contractions: Rare MEMBRANES: [id number] Membranes Status: Ruptured Comments: Pt seen and evaluated. Doing well. SROM at _0730 w/ increased intensity of CTXs. Pt w/ elevated BPs sustained that are now improved. Pt requested and received epidural, and is much more comfortable. Denies ONTIVEROS, RUQ pain, or visual changes. Cx now 1.5 and 75%. Reviewed PreE w/ severe features and recommended initation of Mag sulfate (6g bolus 2 g/hr maint. dose) and continued monitoring / treatment of hypertension. Labs q6, NPO, and pt w/ mojica cath. Discussed magnesium therapy is not contraindication to continued trial of labor. Pt understands and agrees. All quesitons answered. FETUS A: [id number] FHR Baseline: 130 Variability: Moderate 6-25bpm Accelerations: 15X15 Decelerations: None FHR Category: Category I Presentation: Vertex Comments on Fetus A: No evidence of metabolic acidosis FETUS B: [id number] Signing Physician: Jackson Collado DO *Electronically Signed* 01/13/20851 JACKSON COLLADO DO PATIENT NAME: CARMELLA BUENROSTRO PROGRESS NOTE DATE OF : 92 PHYSICIAN: JACKSON COLLADO DO RPT #: [id number] REPORT IS CONFIDENTIAL AND NOT TO BE RELEASED WITHOUT AUTHORIZATION [address] [place], [place] [address] Signed Copies: ~ *Electronically Signed* 01/13/20851 JACKSON COLLADO DO PATIENT NAME: CARMELLA BUENROSTRO PROGRESS NOTE DATE OF : 92 PHYSICIAN: JACKSON COLLADO DO RPT #: [id number] REPORT IS CONFIDENTIAL AND NOT TO BE RELEASED WITHOUT AUTHORIZATION
--- NOTE | 2020-01-13 11:29 | PR ---
[facility] [address] [place], [place] [address] Signed Progress Notes IP Datetime Report Generated by AGUSTINA: 01/13/2020 11:29 PROGRESS NOTES: [id number] Impression: Normal Progression of Labor; Reassuring Heart Rate; Gest. HTN/PreEclampsia/Eclampsia Procedures: Sterile Vag Exam Plan: Continue Present Management; Anesthesia Consult Other Plans: Mag Sulfate Informed Consent Obtain: Vaginal Delivery; Section Delivery Other Informed Consents: Magnesium sulfate therapy VITAL SIGNS: [id number] Vital Signs: Reviewed VS Notable Details: No sustained severe BPs EXAM: [id number] Dilatation: 1.5 Effacement: 90 Station: -2 Contractions: Rare MEMBRANES: [id number] Membranes Status: Ruptured Comments: Pt seen and evaluated. Much more painful w/ contractions. Reviewed FHT with intermittent late decelerations, minimal variability, and accelerations. Overall reassuring FHT with accelearations. Minimal variability likely secondary to magnesium sulfate. Late decelerations resolving with maternal repositioning. Some transient hypotension noted that is now spontaneously improved. Discussed concerns with patient regarding late decelerations in early labor, and possible need for as labor progresses. Pitocin contraindicated currently. Will monitor closely. Pt requesting epidural bolus, and anesthesia notified and will evaluate when available. All questions answered to best of my ability and to patient's apparent satisfaction FETUS A: [id number] FHR Baseline: 130 Variability: Moderate 6-25bpm Accelerations: 15X15 Decelerations: None FHR Category: Category I Presentation: Vertex Comments on Fetus A: No evidence of metabolic acidosis FETUS B: [id number] Signing Physician: Jackson Collado DO *Electronically Signed* 01/13/20 1129 JACKSON COLLADO DO PATIENT NAME: CARMELLA BUENROSTRO PROGRESS NOTE DATE OF : 89 PHYSICIAN: JACKSON COLLADO DO RPT #: [id number] REPORT IS CONFIDENTIAL AND NOT TO BE RELEASED WITHOUT AUTHORIZATION [address] [place] [address] Signed Copies: ~ *Electronically Signed* 01/13/20 1129 COLLADOJACKSON DO PATIENT NAME: CARMELLA BUENROSTRO PROGRESS NOTE DATE OF : 89 PHYSICIAN: JACKSON COLLADO DO RPT #: [id number] REPORT IS CONFIDENTIAL AND NOT TO BE RELEASED WITHOUT AUTHORIZATION
--- NOTE | 2020-01-13 13:47 | PR ---
[facility] [address] [place], [place] [address] Signed Progress Notes IP Datetime Report Generated by AGUSTINA: 01/13/2020 13:46 PROGRESS NOTES: [id number] Impression: Normal Progression of Labor; Reassuring Heart Rate; Gest. HTN/PreEclampsia/Eclampsia Procedures: Intrauterine Pressure Catheter; Scalp Electrode; Sterile Vag Exam Plan: Continue Present Management Other Plans: Mag Sulfate Informed Consent Obtain: Vaginal Delivery Other Informed Consents: IUPC / FSE VITAL SIGNS: [id number] Vital Signs: Reviewed VS Notable Details: No sustained severe BPs EXAM: [id number] Dilatation: 4.0 Effacement: 90 Station: -1 Contractions: Rare MEMBRANES: [id number] Membranes Status: Ruptured Comments: Pt seen and examined. Doing well. Epidural was rebolused and pt more comfortable. BPs stable. No ONTIVEROS, RUQ pain, or visual changes. CTXs have spaced but cervical changed noted. Slight edema of anterior cervix at 12 oclock. Small clot and amniotic fluid noted to be blood tinged. Will monitor closely. IUPC and FSE placed without difficulty after verbal consent obtained. Reviewed anticipated course of labor. Continue magnesium sulfate. Anticipate . Will consider augmentation w/ pitocin as needed if FHT reassuring. All questions answered to best of my ability and to pt's apparent satisfaction. FETUS A: [id number] FHR Baseline: 130 Variability: Moderate 6-25bpm Accelerations: 15X15 Decelerations: None FHR Category: Category I Presentation: Vertex Comments on Fetus A: No evidence of metabolic acidosis FETUS B: [id number] Signing Physician: Jackson Collado DO *Electronically Signed* 01/13/20 1346 JACKSON COLLADO DO PATIENT NAME: CARMELLA BUENROSTRO PROGRESS NOTE DATE OF : 89 PHYSICIAN: JACKSON COLLADO DO RPT #: [id number] REPORT IS CONFIDENTIAL AND NOT TO BE RELEASED WITHOUT AUTHORIZATION [address] [place] [address] Signed Copies: ~ *Electronically Signed* 01/13/201345 JACKSON COLLADO DO PATIENT NAME: CARMELLA BUENROSTRO PROGRESS NOTE DATE OF : 89 PHYSICIAN: JACKSON COLLADO #: [id number] REPORT IS CONFIDENTIAL AND NOT TO BE RELEASED WITHOUT AUTHORIZATION
--- NOTE | 2020-01-13 18:24 | PR ---
[facility] [address] [place], [place] [address] Signed Progress Notes IP Datetime Report Generated by AGUSTINA: 01/13/2020 18:24 PROGRESS NOTES: [id number] Impression: Normal Progression of Labor; Reassuring Heart Rate Procedures: Sterile Vag Exam Plan: Continue Present Management Other Plans: Mag Sulfate Informed Consent Obtain: Vaginal Delivery Other Informed Consents: IUPC / FSE VITAL SIGNS: [id number] Vital Signs: Reviewed VS Notable Details: No sustained severe BPs EXAM: [id number] Dilatation: 7.0 Effacement: 90 Station: -1 Contractions: Rare MEMBRANES: [id number] Membranes Status: Ruptured Comments: Pt seen and examined. Continued labile BPs and received Labetalol 20mg followed by 40mg IV; now BPs stable. No ONTIVEROS, RUQ pain, or visual changes. Ctx have been borderline adequate but continued cervical change noted. Pt w/ continued anterior lip edema but again continued cervical change. Adequate pelvis and no suspicion of metabolic acidosis. Continue expectant management and will consider augmentation. FETUS A: [id number] FHR Baseline: 130 Variability: Moderate 6-25bpm Accelerations: 15X15 Decelerations: None FHR Category: Category I Presentation: Vertex Comments on Fetus A: No evidence of metabolic acidosis FETUS B: [id number] Signing Physician: Jackson Collado DO Copies: *Electronically Signed* 01/13/20 1824 JACKSON COLLADO DO PATIENT NAME: CARMELLA BUENROSTRO PROGRESS NOTE DATE OF : 89 PHYSICIAN: JACKSON COLLADO DO RPT #: [id number] REPORT IS CONFIDENTIAL AND NOT TO BE RELEASED WITHOUT AUTHORIZATION [address] [address] Signed ~ *Electronically Signed* 01/13/20 1824 JACKSON COLLADO DO PATIENT NAME: CARMELLA BUENROSTRO PROGRESS NOTE DATE OF : 89 PHYSICIAN: JACKSON COLLADO DO RPT #: [id number] REPORT IS CONFIDENTIAL AND NOT TO BE RELEASED WITHOUT AUTHORIZATION
--- NOTE | 2020-01-13 20:50 | PR ---
[facility] [address] [place], [place] [address] Signed Progress Notes IP Datetime Report Generated by AGUSTINA: 01/13/2020 20:49 PROGRESS NOTES: [id number] Impression: Normal Progression of Labor; Reassuring Heart Rate Procedures: Sterile Vag Exam Plan: Continue Present Management; Anticipate Vaginal Delivery Other Plans: Mag Sulfate Informed Consent Obtain: Vaginal Delivery Other Informed Consents: IUPC / FSE VITAL SIGNS: [id number] Vital Signs: Reviewed VS Notable Details: No sustained severe BPs EXAM: [id number] Dilatation: 8.5 Effacement: 90 Station: -1 Contractions: Rare MEMBRANES: [id number] Membranes Status: Ruptured Comments: Pt seen and examined. Doing well. Comfortable w/ contractions. BPs well controlled. No ONTIVEROS, RUQ pain, or visual changes. Mag therapeutic. Cervix now complete and will start pushing w/ contractions. Anticipate . Will monitor response to pushing. All questions answered FETUS A: [id number] FHR Baseline: 130 Variability: Moderate 6-25bpm Accelerations: 15X15 Decelerations: None FHR Category: Category I Presentation: Vertex Comments on Fetus A: No evidence of metabolic acidosis FETUS B: [id number] Signing Physician: Jackson Collado DO Copies: ~ *Electronically Signed* 01/13/202048 JACKSON COLLADO DO PATIENT NAME: CARMELLA BUENROSTRO PROGRESS NOTE DATE OF : 89 PHYSICIAN: JACKSON COLLADO DO RPT #: [id number] REPORT IS CONFIDENTIAL AND NOT TO BE RELEASED WITHOUT AUTHORIZATION
--- NOTE | 2020-01-15 08:43 | PR ---
[facility] [address] [facility] [place], [place] [address] Signed PP Progress Notes Datetime Report Generated by CPN: 01/15/2020 08:42 SUBJECTIVE: [id number] Pain: Within Normal Limits Nausea/Vomiting: Denies Flatus: Yes Bowel Movement: No Vital Signs: [id number] Vital Signs: Reviewed; Within Normal Limits EXAM: Ongoing Cardiovascular: Normal Respiratory: Normal Abdomen/Uterus: Normal Lochia: Normal Vulva/Perineum: Not Done Breasts: Normal CVA Tenderness: Normal Extremities: Normal Incision: Not Applicable Progress: Normal Exam Comments: Fundus firm U-2 nontender IMPRESSION/PLAN/PROCEDURES: [id number] Impression: Normal Progression Plan: Discharge Procedures: None Progress Notes: Pt seen and examined. Doing well. Ambulating, voiding, and tolerating full diet. Pain and lochia minimal. well. BPs well controlled. No ONTIVEROS, RUQ pain, or visual changes. D/C instructions and pp preeclampsia education given. Plan BP check in 2 days Signing Physician: Jackson Collado DO Copies: ~ *Electronically Signed* 01/15/20 0842 JACKSON COLLADO DO PATIENT NAME: ASCENCIO MARQUES,CARMELLA PROGRESS NOTE DATE OF : 89 PHYSICIAN: JACKSON COLLADO DO RPT #: [id number] REPORT IS CONFIDENTIAL AND NOT TO BE RELEASED WITHOUT AUTHORIZATION
== END 2020-01-15 12:35 | disposition home or self-care (01) | DRG 768 ==
LOC: FBCO 09:53 → FBC 10:35
PROVIDERS: ADMIT Obstetrics & Gynecology
PROC: 10E0XZZ Delivery of Products of Conception, External Approach (ICD-10-PCS; principal; 2020-01-13)
PROC: 0UQM0ZZ Repair Vulva, Open Approach (ICD-10-PCS; 2020-01-13)
PROC: 0KQM0ZZ Repair Perineum Muscle, Open Approach (ICD-10-PCS; 2020-01-13)
PROC: 0UQMXZZ Repair Vulva, External Approach (ICD-10-PCS; 2020-01-13)
PROC: 3E0S3BZ Introduction of Anesthetic Agent into Epidural Space, Percutaneous Approach (ICD-10-PCS; 2020-01-13)
PROC: 00HU33Z Insertion of Infusion Device into Spinal Canal, Percutaneous Approach (ICD-10-PCS; 2020-01-13)
DX: O24.429 Gestational diabetes mellitus in childbirth, unspecified control (principal); Z37.0 Single live birth; Z3A.40 40 weeks gestation of pregnancy; O14.94 Unspecified pre-eclampsia, complicating childbirth
CPT/HCPCS: 01960; 36415; 72170; 80053; 83735; 84550; 85025; 85027; A9270; J2405; J2795; J3475; J7121

== ENCOUNTER 2021-03-12 17:28 | Emergency (ER) | payer BC, OTHER ==
[~2021-03-12] VITALS: Ht 170.2 cm; Wt 66.2 kg
[2021-03-12] MEDS ORDERED: ZYRTEC10 MG PO (17:59)
[2021-03-12] MEDS ORDERED: TYLENOL EXTRA500 MG PO (18:00)
== END 2021-03-12 19:34 | disposition home or self-care (01) ==
LOC: ED 17:28
DX: O20.0 Threatened abortion (principal)
CPT/HCPCS: 80048; 81001; 84702; 85025; 86900; 99284

== ENCOUNTER 2022-04-30 10:16 | Inpatient (IN) | payer BC, OTHER ==
[~2022-04-30] VITALS: Ht 170.2 cm; Wt 81.6 kg
[~2022-04-30 10:16] MED LIST: TYLENOL EXTRA500 MG PO; ZYRTEC10 MG PO
--- NOTE | 2022-05-01 11:24 | PR ---
[facility] [address] [place], [place] [address] Signed PP Progress Notes Datetime Report Generated by CPN: 05/01/2022 11:24 SUBJECTIVE: [id number] Pain: Within Normal Limits Nausea/Vomiting: Denies Vital Signs: [id number] Vital Signs: Reviewed Notable Details: mild elevation at times Cardiovascular: Normal Respiratory: Normal Abdomen/Uterus: Normal Lochia: Normal CVA Tenderness: Normal Extremities: Normal Progress: Normal Exam Comments: NAD, lying in bed RRR No dyspnea/ retractions Abd SNTND, FFBU Ext: trace edema, neg Ariane's BL IMPRESSION/PLAN/PROCEDURES: [id number] Impression: Normal Progression; Induced Hypertension Plan: Continue Present Management; Discharge Progress Notes: Pt is a 32 yo PPD#1 s/p -pt seen and evaluated, progressing well -ambulating, voiding, tolerating regular diet, pain well-controlled with motrin, lochia light, without difficulty, denies concerns/ complaints, undecided re: contraception gHTN: BP improving , still occasional mild elevation. PreE precautions reviewed, plan BP check in office on Wednesday or return to [facility] over the weekend if ONTIVEROS/ vision changes/ RUQ pain non-responsive to nap/ tylenol. Pt strongly desires DC to home later today, anticipate DC after 24 baby check Signing Physician: Ariela Riggs DO *Electronically Signed* 05/01/22 1124 ARIELA RIGGS DO PATIENT NAME: CARMELLA BUENROSTRO PROGRESS NOTE DATE OF : 89 PHYSICIAN: ARIELA RIGGS #: [id number] REPORT IS CONFIDENTIAL AND NOT TO BE RELEASED WITHOUT AUTHORIZATION
== END 2022-05-01 17:37 | disposition home or self-care (01) | DRG 807 ==
LOC: FBCO 10:16 → FBC 14:52
PROVIDERS: ADMIT Obstetrics & Gynecology; ATTEND Obstetrics & Gynecology
PROC: 10E0XZZ Delivery of Products of Conception, External Approach (ICD-10-PCS; principal; 2022-04-30)
PROC: 0HQ9XZZ Repair Perineum Skin, External Approach (ICD-10-PCS; 2022-04-30)
PROC: 00HU33Z Insertion of Infusion Device into Spinal Canal, Percutaneous Approach (ICD-10-PCS; 2022-04-30)
PROC: 3E0R3BZ Introduction of Anesthetic Agent into Spinal Canal, Percutaneous Approach (ICD-10-PCS; 2022-04-30)
DX: O13.4 Gestational [pregnancy-induced] hypertension without significant proteinuria, complicating childbirth (principal); Z37.0 Single live birth; O24.429 Gestational diabetes mellitus in childbirth, unspecified control; Z3A.39 39 weeks gestation of pregnancy; Z20.822 Contact with and (suspected) exposure to COVID-19; Z67.10 Type A blood, Rh positive; O70.0 First degree perineal laceration during delivery; O62.3 Precipitate labor; O99.02 Anemia complicating childbirth; D64.9 Anemia, unspecified
CPT/HCPCS: 36415; 59025; 80053; 82570; 83615; 84156; 84550; 85025; 85027; 86850; 86900; 86901; 87502; A9270; C9803; G0463; J2590; J7121; U0003